=== PATIENT | female | born 1950 | race Hispanic/Latino ===

== ENCOUNTER → 2024-06-10 | Outpatient (CLI) | payer OTHER ==
[~2024-06-10] MED LIST: CEPH500B PO; IBUP-2070 PO
--- NOTE | 2024-06-10 17:14 | HMCSR ---
APPROVED REPORT EXAM: Two-dimensional and M-mode echocardiogram with Doppler and color Doppler. INDICATION ICD: Abnormal ECG 2D Dimensions RVDd3.4 cmLVEF(%)52.8 (>50%)LVED Vol(simp.)50.0 mL IVSd0.9 (0.7-1.1cm)FS(%)27 %LVES Vol(simp.)15.9 mL LVDd4.1 (3.8-5.6cm)LA (2D)3.5 (1.6-4.0cm)LVEF(%, simp.)68 % PWd1.4 (0.7-1.1cm)Ao Root(2D)2.7 (2.0-3.7cm)LA ESV INDEX (4CH)24.60 mL/m2 IVSs1.4 cmLVOT diam2.1 (1.8-2.4cm)LA ESV INDEX (2CH)26.30 mL/m2 LVDs3.0 (2.5-4.0cm)LA ESV INDEX (BP)28.00 mL/m2 PWs1.3 cm M-Mode Dimensions EPSS0.3 cm LA (MM)4.0 (1.6-4.0cm) Ao Root(MM)2.8 (2.0-3.7cm) Aortic Valve AoV VTI0.3 mAo Mean GR6.0 mmHgLVOT VTI0.27 m ANA LILIA (VMAX)2.8 cm2AVA (VTI) 2.8 cm2 Mitral Valve MV E Hdzv238.1 cm/sDECEL Bbvc593 ms MV A Jwvn396.8 cm/sP 1/2 T108 ms E/A ratio0.9MVA (PHT)2.0 cm2 TDI E/E' Zzmpwl17.2E/E' Dacvbiy27.8 Medial E' Peak V4.70 cm/sLateral E' Peak V6.90 cm/s Pulmonary Valve PV VTI0.20 mPV Mean GR3 mmHg Left Ventricle The left ventricle is normal size. There is normal left ventricular wall thickness. LVEF is 65-70%. T he left ventricular diastolic function is indeterminate. Right Ventricle The right ventricle is normal size. The right ventricular systolic function is normal. Atria The left atrium size is normal. The right atrium size is normal. Aortic Valve The aortic valve is normal in structure. No aortic regurgitation is present. There is no aortic valvu lar stenosis. Mitral Valve The mitral valve is normal in structure. There is no mitral valve regurgitation noted. There is no mi tral valve stenosis. Tricuspid Valve The tricuspid valve is normal in structure. There is no tricuspid valve regurgitation noted. Pulmonic Valve The pulmonary valve is normal in structure. There is no pulmonic valvular regurgitation. Great Vessels The aortic root is normal in size. The IVC is normal in size and collapses >50% with inspiration. Pericardium There is no pericardial effusion. Other Information Quality : GoodRhythm : NSR Conclusion LVEF is 65-70%. The left ventricular diastolic function is indeterminate. No significant valvular abnormalities.
== END | disposition home or self-care (01) ==
LOC: RAH 14:01
PROVIDERS: ATTEND Internal Medicine
DX: R94.31 Abnormal electrocardiogram [ECG] [EKG] (principal)
CPT/HCPCS: 93306

== ENCOUNTER 2025-02-15 08:35 | Emergency (ER) | payer OTHER ==
[~2025-02-15] VITALS: Ht 152.4 cm; Wt 66.2 kg
[2025-02-15] MEDS: diazePAM 2 MG TAB PO ONE (09:12)
--- NOTE | 2025-02-15 09:34 | EKG ---
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
[2025-02-15 09:52] VITALS: BP 172/83; PULSE 68; RESP 16; TEMP 97.9; O2SAT 99
--- NOTE | 2025-02-15 10:14 | HMCIMG ---
EXAM: CR Cervical spine, 4 View. CLINICAL HISTORY: bilateral neck pain COMPARISON: None provided. FINDINGS: BONES: No acute fracture or aggressive appearing osseous lesion. DISCS/DEGENERATIVE CHANGES: Mild cervical spondylosis evident by small anterior osteophytes and uncovertebral joint hypertrophy at multiple levels. There is mild to moderate multilevel degenerative disc disease, more pronounced at C6-T1. SOFT TISSUES: No prevertebral soft tissue swelling. The visualized lung apices are clear. IMPRESSION: 1. No acute osseous injury. 2. Mild cervical spondylosis with mild to moderate multilevel degenerative disc disease, most pronounced at C6-T1. /Loda
== END 2025-02-15 10:03 | disposition home or self-care (01) ==
LOC: EDH 08:35
DX: S16.1XXA Strain of muscle, fascia and tendon at neck level, initial encounter (principal); F41.9 Anxiety disorder, unspecified; E11.9 Type 2 diabetes mellitus without complications; E78.00 Pure hypercholesterolemia, unspecified; I10 Essential (primary) hypertension; Z98.51 Tubal ligation status; V89.2XXA Person injured in unspecified motor-vehicle accident, traffic, initial encounter; Y93.89 Activity, other specified; Y92.89 Other specified places as the place of occurrence of the external cause; Y99.8 Other external cause status
CPT/HCPCS: 72040; 93005; 99283